=== PATIENT | female | born 2000 | race Two or more races ===

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

== ENCOUNTER 2023-05-10 08:51 | Outpatient (CLI) | payer OTHER ==
[~2023-05-10 08:51] MED LIST: RANITIDINE15 MG/1 ML PO
[2023-05-10 10:51] LABS: HEMATOCRIT 42.8 % (36.0-45.00); HEMOGLOBIN 14.8 g/dL (12.0-15.00); MEAN CELL VOLUME 97.8 fL (80.00-100.00); MEAN CORPUSCULAR HEMOGLOBIN 33.8 pg (27.00-32.0); MEAN CORPUSCULAR HGB CONC 34.6 g/dl (32.0-36.0); PLATELET COUNT 276 K/uL (150-450); RED BLOOD COUNT 4.37 M/uL (4.00-6.00)
[2023-05-10 10:56] LABS: % SATURACION 56.4 % (15-50); ALBUMIN 3.9 gm/dL (3.4-5.0); BILIRUBIN TOTAL 0.65 mg/dL (0.3-1.2); CALCIUM 9.3 mg/dL (8.5-10.1); CREATININE SERUM 0.58 mg/dL (0.55-1.02); FERRITIN 27.7 NG/ML (8-252); GFR 131.23; GLOBULINA 2.9 G/DL (2.4-3.5); POTASSIUM 4.26 mEq/L (3.5-5.1); TOTAL PROTEIN 6.8 gm/dL (6.4-8.2)
[2023-05-10 11:05] LABS: INR 1.01; PROTHROMBIN TIME 10.6 SECONDS (9.0-11.5)
[2023-05-10 11:10] LABS: PT 50:50 10.4 SECONDS (9.7-11.4)
[2023-05-10 11:11] LABS: PTT 50:50 28.5 SECONDS (22.4-33.0)
[2023-05-10 11:14] LABS: COL EPI 121 SECONDS (82-175)
[2023-05-10 11:45] LABS: FOLIC ACID > 20.00 ng/ml (4.78-20)
[2023-05-10 12:11] LABS: MANUAL PLATELET COUNT 480
[2023-05-10 12:13] LABS: PLATELET ESTIMATE INCREASED (NORMAL)
== END 2023-05-10 09:08 | disposition home or self-care (01) ==
LOC: LAB 08:51
PROVIDERS: ATTEND Internal Medicine Hematology & Oncology
DX: D50.8 Other iron deficiency anemias (principal); R79.9 Abnormal finding of blood chemistry, unspecified; I10 Essential (primary) hypertension; R74.02 Elevation of levels of lactic acid dehydrogenase [LDH]; K76.89 Other specified diseases of liver; D68.8 Other specified coagulation defects; D69.1 Qualitative platelet defects; D51.3 Other dietary vitamin B12 deficiency anemia; Z91.018 Allergy to other foods